=== PATIENT | female | born 1975 | race African-American/Black ===

== ENCOUNTER → 2021-09-05 | Outpatient (CLI) | payer MEDICAID ==
[2021-09-05 15:32] LABS: Leuteinizing Hormone 30.2 IU/L
[2021-09-05 15:33] LABS: Follicle Stimulating Hormone 43.4 IU/L (SEE BELOW)
== END | disposition home or self-care (01) ==
LOC: LAB 11:47
PROVIDERS: ATTEND Obstetrics & Gynecology
DX: N92.0 Excessive and frequent menstruation with regular cycle (principal)
CPT/HCPCS: 36415; 82670; 83001; 83002; 84144; 84403; 84702; 86038

== ENCOUNTER 2021-12-02 13:02 | Emergency (ER) | payer MEDICAID ==
[~2021-12-02] VITALS: Ht 160 cm; Wt 90.7 kg
[2021-12-02] MEDS ORDERED: LACTATED RINGER'S 1,000 ML IV ONE (13:45)
[2021-12-02] MEDS ORDERED: IOHEXOL 300 MG/ML 100ML BOTTLE IJ ONE (14:06)
[2021-12-02 14:38] LABS: Basophils # (auto) 0 10 ^3/uL (0-0.2); Eosinophils # (auto) 0 10 ^3/uL (0-0.8); Eosinophils % (auto) 0.4 % (0.0-7.0); Hemoglobin 13.9 g/dL (12.2-16.2); Lymphocytes # (auto) 1.8 10 ^3/uL (0.4-5.4); Monocytes # (auto) 0.5 10 ^3/uL (0-1.3); Neutrophils # (auto) 6.9 10 ^3/uL (1.6-8.6); Nucleated Red Blood Cells % 0.1 %; White Blood Cell 9.3 10^3/uL (4.4-10.8)
[2021-12-02 14:40] LABS: Basophils % (auto) 0.4 % (0.0-2.0); Hematocrit 41.2 % (36.0-46.0); Lymphocytes % (auto) 19.4 % (10.0-50.0); Mean Corpuscular Hemoglobin 26.1 pg (28.0-32.0); Mean Corpuscular Hgb Conc. 33.7 g/dL (32.0-36.0); Mean Corpuscular Volume 77.5 fL (80.0-100.0); Monocytes % (auto) 5.3 % (0.0-12.0); Neutrophils % (auto) 74.5 % (37.0-80.0); Red Blood Cells 5.32 10^6/uL (4.0-5.20); Red Cell Distribution Width 15.5 % (11.8-14.3)
[2021-12-02 15:01] LABS: Albumin 3.4 g/dL (3.4-5.0); BUN/Creatinine Ratio 22.3; Calcium 9.1 mg/dL (8.5-10.1); Magnesium 2.5 mg/dL (1.6-2.6)
[2021-12-02 15:06] LABS: Bilirubin, Total 0.4 mg/dL (0.2-1.0); Total Protein 8.9 g/dL (6.4-8.2)
[2021-12-02] MEDS ORDERED: KETOROLAC TROMETH 30 MG/ML 1ML VIAL IV ONE (16:45)
[2021-12-02 18:34] LABS: Urine Bacteria NONE SEEN /hpf (None Seen); Urine Blood Negative /uL (Negative); Urine Specific Gravity > 1.050 (1.001-1.035); Urine WBC 4 /hpf (0 - 5)
[2021-12-02] MEDS ORDERED: CEFEPIME 1 GM in SODIUM CHL 0.9% 50 ML IV ONE (19:45)
[2021-12-02] MEDS ORDERED: VANCOMYCIN 1GM/250ML 250 ML IV ONE (19:45)
[2021-12-02] MEDS ORDERED: ACETAMINOPHEN 325 MG TAB PO ONE (20:15)
[2021-12-02] MEDS ORDERED: SENNA 8.6 MG TAB PO ONE (21:15)
[2021-12-02] MEDS ORDERED: DOCUSATE SOD 100 MG CAP PO ONE (21:15)
[2021-12-02] MEDS ORDERED: LACTULOSE 20Gm/30ML SOLN PO ONE (21:15)
[2021-12-02] MEDS ORDERED: HYDROmorphone HCL 2 MG/ML VL IV ONE (23:45)
[2021-12-03 02:06] VITALS: BP 117/78
[2021-12-03] MEDS ORDERED: MAGNSOL PO (02:08)
[2021-12-03] MEDS ORDERED: NITR-87 PO (02:08)
== END 2021-12-03 02:40 | disposition home or self-care (01) ==
LOC: ER 13:05
DX: K59.00 Constipation, unspecified (principal); E11.9 Type 2 diabetes mellitus without complications; I10 Essential (primary) hypertension; Z88.0 Allergy status to penicillin; Z88.6 Allergy status to analgesic agent
CPT/HCPCS: 36415; 71045; 74177; 80053; 81001; 83690; 83735; 84484; 84702; 85025; 93005; 96361; 96365; 96366; 96367; 96375; 99285; J0692; J1170; J1885; J3370; Q9967

== ENCOUNTER → 2022-01-25 | Outpatient (CLI) | payer MEDICAID ==
[~2022-01-25] MED LIST: MAGNSOL PO; NITR-87 PO
[2022-01-25 14:50] LABS: Leuteinizing Hormone 10.5 IU/L
[2022-01-25 14:51] LABS: Follicle Stimulating Hormone 23.96 IU/L (SEE BELOW)
== END | disposition home or self-care (01) ==
LOC: LAB 13:19
PROVIDERS: ATTEND Obstetrics & Gynecology
DX: Z31.41 Encounter for fertility testing (principal)
CPT/HCPCS: 36415; 82670; 83001; 83002; 84403; 84443

== ENCOUNTER → 2022-05-05 | Outpatient (CLI) | payer MEDICAID ==
[2022-05-05 16:02] LABS: Leuteinizing Hormone 18.1 IU/L; Prolactin 9.96 ng/mL (2.8-29.2)
[2022-05-05 16:03] LABS: Follicle Stimulating Hormone 38.97 IU/L (SEE BELOW)
== END | disposition home or self-care (01) ==
LOC: LAB 15:06
PROVIDERS: ATTEND Obstetrics & Gynecology
DX: E28.2 Polycystic ovarian syndrome (principal)
CPT/HCPCS: 36415; 82670; 83001; 83002; 84144; 84146; 84403

== ENCOUNTER 2022-05-29 19:03 | Emergency (ER) | payer MEDICAID ==
[~2022-05-29] VITALS: Ht 160 cm; Wt 86.0 kg
[2022-05-29 23:01] VITALS: BP 147/94
== END 2022-05-29 23:00 | disposition home or self-care (01) ==
LOC: ER 19:09
DX: S63.601A Unspecified sprain of right thumb, initial encounter (principal); J45.909 Unspecified asthma, uncomplicated; E11.9 Type 2 diabetes mellitus without complications; I10 Essential (primary) hypertension; Z88.0 Allergy status to penicillin; Z88.6 Allergy status to analgesic agent; W10.8XXA Fall (on) (from) other stairs and steps, initial encounter; Y93.89 Activity, other specified; Y92.89 Other specified places as the place of occurrence of the external cause; Y99.8 Other external cause status
CPT/HCPCS: 29130; 73140

== ENCOUNTER → 2022-06-05 | Emergency (ER) | payer MEDICAID ==
[~2022-06-05] VITALS: Ht 160 cm; Wt 86.0 kg
[2022-06-05 19:30] VITALS: BP 142/93
== END | disposition left against medical advice (07) ==
LOC: ER 19:10
DX: M79.644 Pain in right finger(s) (principal); Z53.21 Procedure and treatment not carried out due to patient leaving prior to being seen by health care provider

== ENCOUNTER → 2022-07-03 | Outpatient (CLI) | payer MEDICAID ==
[2022-07-04 17:34] LABS: Leuteinizing Hormone 39.6 IU/L
[2022-07-04 17:35] LABS: Follicle Stimulating Hormone 41.31 IU/L (SEE BELOW)
== END | disposition home or self-care (01) ==
LOC: LAB 11:11
PROVIDERS: ATTEND Obstetrics & Gynecology Obstetrics
DX: E11.9 Type 2 diabetes mellitus without complications (principal)
CPT/HCPCS: 36415; 82306; 82670; 83001; 83002; 84144; 84403; 84436; 84443

== ENCOUNTER 2022-09-18 08:46 | Emergency (ER) | payer MEDICAID ==
[~2022-09-18] VITALS: Ht 160 cm; Wt 83.6 kg
[2022-09-18 17:15] VITALS: BP 159/98
== END 2022-09-18 17:20 | disposition home or self-care (01) ==
LOC: ER 08:46
DX: I10 Essential (primary) hypertension (principal); J45.909 Unspecified asthma, uncomplicated; E11.9 Type 2 diabetes mellitus without complications; Z88.6 Allergy status to analgesic agent; Z88.0 Allergy status to penicillin; Z88.8 Allergy status to other drugs, medicaments and biological substances

== ENCOUNTER → 2023-04-16 | Outpatient (CLI) | payer MEDICAID ==
[~2023-04-16] MED LIST changes: +BUPIVACAINE HCL 0.25% P/F 10 ML VIAL ONE; +IOHEXOL 300 MG/ML 100ML BOTTLE IJ ONE; +LIDOCAINE 2%HCL (LOCAL ANESTH.) INJ 10ml MDV ONE; +methylPREDNISolone ACETATE 80 MG/ML VL ONE
== END | disposition home or self-care (01) ==
LOC: XYW 10:00
PROVIDERS: ATTEND Orthopaedic Surgery Sports Medicine
DX: M79.644 Pain in right finger(s) (principal); G89.29 Other chronic pain
CPT/HCPCS: 20600; 73140; 76000; J1040; J2001; J3490; Q9967

== ENCOUNTER 2025-06-10 15:05 | Outpatient (CLI) | payer MEDICAID ==
[~2025-06-10 15:05] MED LIST changes: -BUPIVACAINE HCL 0.25% P/F 10 ML VIAL ONE; -IOHEXOL 300 MG/ML 100ML BOTTLE IJ ONE; -LIDOCAINE 2%HCL (LOCAL ANESTH.) INJ 10ml MDV ONE; -methylPREDNISolone ACETATE 80 MG/ML VL ONE
--- NOTE | 2025-06-11 07:28 | DVHSR ---
APPROVED REPORT EXAM: Two-dimensional and M-mode echocardiogram with Doppler and color Doppler. DIMENSIONS LVDd4.1 (3.8-5.7cm)LA (2D)4.2 (1.9-4.0cm)Aortic Root3.0 (2.0-3.7cm) LVDs2.5 (2.5-4.0cm)LA (MM) (1.9-4.0cm)Aortic Cusp Exc1.8 (1.5-2.0cm) EF (%) 70.6 (55-70%)Rt. Atrium3.1 (1.9-4.0cm)Asc. Aorta cm IVSd1.2 (0.7-1.1cm)RV (D)3.6 (1.8-2.4cm) PWd0.9 (0.7-1.1cm) Mitral Valve MitralMitral Stenosis E wave0.65m/sMV Mean GR.mmHg A wave1.17m/sMV Peak GR.119mmHg E/A ratio0.62D MVAcm2 DECEL [id number] 1/2 [place] Aortic Valve Aortic ValveAortic Stenosis V11.19m/Genesis Mean GR.4mmHg V21.30m/Genesis Peak GR.7mmHg LVOT Diameter1.8 (1.8-2.4cm)Doppler AVA2.33cm2 Pulmonic Valve V20.96m/s Tricuspid Valve TR Velocity2.69m/s [id number] LEFT VENTRICLE The left ventricle is normal size. There is mild to moderate concentric left ventricular hypertrophy. The Ejection Fraction is 60-65%. RIGHT VENTRICLE The right ventricle is normal size. ATRIA The left atrial size is normal. The right atrium size is normal. The interatrial septum is intact with no evidence for an atrial septal defect. MITRAL VALVE The mitral valve is normal in structure and function. There is systolic anterior motion of the mitral valve. Mitral regurgitation is mild to moderate. PULMONIC VALVE The pulmonic valve is not well visualized. TRICUSPID VALVE The tricuspid valve is grossly normal. There is mild tricuspid regurgitation. Right ventricular systolic pressure is 30-40 mmHg. AORTIC VALVE The aortic valve opens well. No aortic regurgitation is present. GREAT VESSELS The aortic root is normal size. PERICARDIAL EFFUSION There is no pericardial effusion. Other Information Technically limited study due to body habitus. Conclusion HCM SEPTAL HYPERTROPHY EF >60% MOD MR MILD TR LAE
== END 2025-06-11 17:00 | disposition home or self-care (01) ==
LOC: Rad HDHVI 15:05
PROVIDERS: ATTEND Internal Medicine Cardiovascular Disease
DX: I08.1 Rheumatic disorders of both mitral and tricuspid valves (principal); I42.2 Other hypertrophic cardiomyopathy; R94.31 Abnormal electrocardiogram [ECG] [EKG]
CPT/HCPCS: 93306

== ENCOUNTER 2025-06-23 08:44 | Outpatient (CLI) | payer MEDICAID ==
[~2025-06-23] VITALS: Ht 160 cm; Wt 72.6 kg
== END 2025-06-23 17:00 | disposition home or self-care (01) ==
LOC: Rad HDHVI 08:44
PROVIDERS: ATTEND Internal Medicine Cardiovascular Disease
DX: R00.0 Tachycardia, unspecified (principal); Z13.6 Encounter for screening for cardiovascular disorders; I10 Essential (primary) hypertension; E11.40 Type 2 diabetes mellitus with diabetic neuropathy, unspecified; E78.2 Mixed hyperlipidemia; I49.9 Cardiac arrhythmia, unspecified; R94.31 Abnormal electrocardiogram [ECG] [EKG]
CPT/HCPCS: 78452; 93017; A9500; 96374